=== PATIENT | female | born 2005 | race Caucasian/White ===

== ENCOUNTER 2024-01-23 12:37 | Emergency (ER) | payer SELFPAY ==
[~2024-01-23] VITALS: Ht 160 cm; Wt 65.0 kg
[2024-01-23 12:41] VITALS: O2SAT 98
[2024-01-23] MEDS: KETOROLAC 30MG/ML VIAL IM ONE (14:02)
[2024-01-23] MEDS: CYCLOBENZAPRINE 10MG TABLET PO ONE (14:02)
[2024-01-23] MEDS ORDERED: NAPR-1176 MT (14:49)
[2024-01-23 15:00] VITALS: BP 120/74; PULSE 16; RESP 17; TEMP 98
== END 2024-01-23 15:50 | disposition home or self-care (01) ==
LOC: ER 12:37
DX: S20.212A Contusion of left front wall of thorax, initial encounter (principal); S16.1XXA Strain of muscle, fascia and tendon at neck level, initial encounter; S39.012A Strain of muscle, fascia and tendon of lower back, initial encounter; V49.59XA Passenger injured in collision with other motor vehicles in traffic accident, initial encounter; Y93.89 Activity, other specified; Y92.89 Other specified places as the place of occurrence of the external cause; Y99.8 Other external cause status
CPT/HCPCS: 99285; 72125; 71045; 81025; 96372; J1885